=== PATIENT | male | born 1960 | race Caucasian/White ===

== ENCOUNTER → 2016-07-03 | Day surgery (SDC) | payer OTHER ==
[~2016-07-03] MED LIST: LIPITOR20 M2 PO
--- NOTE | 2016-07-03 10:38 | Operative Report ---
Operative/Inv Procedure Report Surgery Date: 07/03/16 Name of Procedure: 1 right knee arthroscopy 2. Right knee scar tissue debridement and partial synovectomy Pre-Operative Diagnosis: Right knee arthrofibrosis Post-Operative Diagnosis: Same Estimated Blood Loss: none Surgeon/Rn Managed Care: KARLOS CHAMBERS,SOCORRO Tam Anesthesia: laryngeal mask airway, moderate sedation Operative/Procedure Note Note: Mr. Henry presented to the office with complaints of right knee pain about 8 months after a total knee replacement was performed, the patient was doing well until about a 6 month visit. At that point he began to experience crepitation that was painful over the anterior aspect knee particularly with maneuvers that required deep bending and weightbearing into extension. This was consistent with scar tissue underneath the quad tendon and the diagnosis of patella clunk syndrome. After discussing options with the patient for treatment of this patient elected to proceed with arthroscopy and debridement of this scar tissue. Preoperative consent had been obtained, preoperative antibiotics were given, preoperative anesthesia was administered and preoperative timeouts were performed. A tourniquet was applied to the right upper thigh and the patient was then prepped and draped in standard fashion. Portal holes were marked and anesthetized of the superior-lateral superomedial aspect of the patella and the superolateral portal was then created using an 11 blade the cam was then advanced into the knee and immediately it did become apparent that there was significant scar tissue underneath the quad tendon in the suprapatellar pouch, patient also had evidence of some cloudy type fluid in the knee but no other evidence of synovial hypertrophy, hyperemia or irritation. Under direct visualization a spinal needle was placed in the superomedial area of the left leg was utilized to create a hole the shaver was then advanced the knee and the undersurface of the quad tendon was then completely debrided of any scar tissue down to the cement bone interval super patella pouch was debrided of any redundant scar tissue attention was then turned to the distal aspect and out's domed was obtained of the tibial hypertrophy underneath patella tendon this was also debrided again down to the tibial cement bone interval. Debridement continued until adequate debridement was performed the tools were then removed from the knee after irrigating. The portals were then closed using 4-0 nylon the rest of the Marcaine with epi was then injected into the knee and the knee was dressed with Xeroform 4 x 4's Webrils and an Jordan wrap the patient was then transferred to the PACU in good condition.
== END ==
LOC: STS 02:02
DX: M24.661 Ankylosis, right knee (principal); M25.861 Other specified joint disorders, right knee
CPT/HCPCS: J2250